=== PATIENT | male | born 1995 | race Caucasian/White ===

== ENCOUNTER 2024-12-27 02:34 | Emergency (ER) | payer MEDICAID ==
[~2024-12-27] VITALS: Ht 167.6 cm; Wt 98.0 kg
[2024-12-27 02:43] VITALS: O2SAT 99
[2024-12-27 04:05] LABS: BASOPHILS % 0.6 % (0.0-2.0); EOSINOPHILS % 2.5 % (0.0-5.0); HEMATOCRIT. 47.4 % (42.0-52.0); HEMOGLOBIN. 15.8 g/dL (14.0-18.0); LYMPHOCYTES % 29.4 % (20.0-50.0); MEAN CORPUSCULAR HEMOGLOBIN 29.9 pg (28.0-32.0); MEAN CORPUSCULAR HGB CONC 33.3 g/dL (31.0-37.0); MEAN CORPUSCULAR VOLUME 89.8 fL (80.0-94.0); MEAN PLATELET VOLUME 7.8 fl (7.4-10.4); MONOCYTES % 11.2 % (2.0-8.0); NEUTROPHILS % 56.3 % (40.0-76.0); PLATELET 293 x1000/uL (130-400); RED BLOOD CELL COUNT 5.28 mill/uL (4.7-6.1); RED CELL DISTRIBUTION WIDTH 13.3 % (11.6-14.6); WHITE BLOOD COUNT 10.7 x1000/uL (4.5-11.0)
[2024-12-27 04:22] LABS: CHLORIDE 107 mEq/L (98-107); POTASSIUM 4.6 mEq/L (3.5-5.1); SODIUM 139 mEq/L (136-145)
[2024-12-27 04:23] LABS: CARBON DIOXIDE 26 mEq/L (21-32)
[2024-12-27 04:24] LABS: CALCIUM 9.2 mg/dL (8.7-10.4)
[2024-12-27 04:28] LABS: CREATININE 1.1 mg/dL (0.6-1.3)
[2024-12-27 04:29] LABS: GLUCOSE 116 mg/dL (70-105); UREA NITROGEN BLOOD 12 mg/dL (9-23)
[2024-12-27] MEDS: HYDROCODONE/ACETAMINOPHEN 5/325MG TABLET PO ONE (04:38)
[2024-12-27 05:05] LABS: CLARITY URINE CLEAR (CLEAR); COLOR URINE YELLOW (YELLOW); GLUCOSE URINE NEGATIVE (NEGATIVE); KETONES URINE NEGATIVE (NEGATIVE); LEUKOCYTE ESTERASE URINE 2+ (NEGATIVE); NITRITE URINE NEGATIVE (NEGATIVE); OCCULT BLOOD URINE 1+ (NEGATIVE); PROTEIN URINE NEGATIVE (NEGATIVE); SPECIFIC GRAVITY URINE 1.011 (1.005-1.030); UROBILINOGEN URINE 0.2 E.U./dL (0.2-1.0)
[2024-12-27 05:23] LABS: SQUAMOUS EPITHELIAL CELL URINE FEW /lpf (RARE/1+); WBC URINE 15-25 /hpf (0-2)
[2024-12-27 05:24] LABS: BACTERIA URINE NONE SEEN
[2024-12-27] MEDS ORDERED: SULF1TAB48 MT (05:41)
[2024-12-27] MEDS ORDERED: IMOD PO (05:41)
[2024-12-27] MEDS ORDERED: ACET-2708 MT (05:50)
[2024-12-27 06:05] LABS: ALANINE AMINOTRANSFERASE 30 IU/L (10-49); ALBUMIN 4.7 g/dL (3.2-4.8); ASPARTATE AMINOTRANSFERASE 21 IU/L (<34); BILIRUBIN DIRECT 0.1 mg/dL (<=3.0)
[2024-12-27 06:06] LABS: BILIRUBIN TOTAL 0.4 mg/dL (0.1-1.0); PROTEIN TOTAL 7.9 g/dL (6.0-8.3)
[2024-12-27 07:21] VITALS: BP 114/72; PULSE 54; RESP 14; TEMP 36.7; O2SAT 100
== END 2024-12-27 07:23 | disposition home or self-care (01) ==
LOC: ER 02:34
DX: N39.0 Urinary tract infection, site not specified (principal); Z79.899 Other long term (current) drug therapy
CPT/HCPCS: 80076; 80048; 81003; 83690; 85025; 87086; 87186; 87077; 36415; 74176; 99284; Z7610 ×3; A4606